=== PATIENT | female | born 1935 | race Two or more races ===

== ENCOUNTER 2023-04-01 10:59 | Emergency (ER) | payer OTHER ==
[~2023-04-01] VITALS: Ht 152.4 cm; Wt 51.3 kg
[2023-04-01 12:11] LABS: HEMATOCRIT 35.1 % (36.0-45.00); HEMOGLOBIN 12.2 g/dL (12.0-15.00); MEAN CORPUSCULAR HEMOGLOBIN 35.7 pg (27.00-32.0); MEAN CORPUSCULAR HGB CONC 34.7 g/dl (32.0-36.0); PLATELET COUNT 273 K/uL (150-450); RED BLOOD COUNT 3.41 M/uL (4.00-6.00); RED CELL DISTRIBUTION WIDTH 14.4 % (11.5-14.5)
[2023-04-01 12:26] LABS: URINE APPEARANCE Cloudy; URINE BILIRRUBIN Negative (NEGATIVE); URINE BLOOD Trace; URINE COLOR Yellow; URINE GLUCOSE Negative (NEGATIVE); URINE LEUKOCYTE Moderate; URINE NITRATE Positive; URINE PROTEIN Negative (NEGATIVE)
[2023-04-01 12:30] LABS: URINE RBC 23.5 uL (0.0-20.8); URINE WBC 200.5 uL (0.0-23.2)
[2023-04-01 12:42] LABS: CALCIUM 9.6 mg/dL (8.5-10.1); CREATININE SERUM 0.82 mg/dL (0.55-1.02); GFR 65.94; POTASSIUM 3.95 mEq/L (3.5-5.1)
== END 2023-04-01 15:24 | disposition home or self-care (01) ==
LOC: ER 10:59
PROVIDERS: General Practice
DX: R41.82 Altered mental status, unspecified (principal); Z88.2 Allergy status to sulfonamides
CPT/HCPCS: 36415; 70450; 93005; 99284; J0696